=== PATIENT | male | born 1975 | race African-American/Black ===

== ENCOUNTER 2018-04-28 14:11 | Emergency (ER) | payer OTHER ==
[~2018-04-28] VITALS: Ht 185.4 cm; Wt 80.1 kg
[2018-04-28] MEDS ORDERED: DELTASONE20 M1 PO (15:56)
[2018-04-28] MEDS ORDERED: ANTI-ITCH28 G1 TP (15:56)
[2018-04-28 16:09] VITALS: BP 120/68
== END 2018-04-28 16:10 | disposition home or self-care (01) ==
LOC: EME 14:11
DX: L23.7 Allergic contact dermatitis due to plants, except food (principal); Z72.0 Tobacco use
CPT/HCPCS: 99281; 99283